=== PATIENT | female | born 1990 | race Hispanic/Latino ===

== ENCOUNTER 2018-09-04 18:20 | Inpatient (IN) | payer BC | END 2018-09-08 16:00 | disposition home or self-care (01) | LOC: EDH 18:20 → EDHIP 22:05 → 3BH 23:20 | DX: A41.9 Sepsis, unspecified organism (principal); N39.0 Urinary tract infection, site not specified; E11.65 Type 2 diabetes mellitus with hyperglycemia; Z79.84 Long term (current) use of oral hypoglycemic drugs; F17.210 Nicotine dependence, cigarettes, uncomplicated ==